=== PATIENT | male | born 1965 | race Caucasian/White ===

== ENCOUNTER 2021-06-23 18:38 | Observation (INO) ==
[2021-06-23] MEDS ORDERED: ENOXAPARIN 100 MG/ML SYRINGE SUBCUT STA (19:25)
[2021-06-23] MEDS ORDERED: ONDANSETRON 4 MG/2 ML VIAL IV STA (19:25)
[2021-06-23 21:13] LABS: Basophils # 0.1 10*3/uL (0.0-0.2); Basophils % 0.6 % (0.0-0.8); Eosinophils # 0.4 10*3/uL (0.0-0.87); Eosinophils % 4.4 % (0.00-10.9); Hematocrit 41.7 VOL% (42.0-52.0); Hemoglobin 15.1 GM/DL (14.0-18.0); Immature Granulocytes % 0.4 %; Immature Granulocytes Absolute 0.04 #; Lymphocytes # 2.5 10*3/uL (1.4-4.0); Mean Corpuscular HGB Conc 36.2 GM/DL (32-36); Mean Corpuscular Volume 84.6 FL (87-102); Mean Platelet Volume 10.1 FL (9.6-12.0); Monocytes # 0.6 10*3/uL (0.11-0.8); Monocytes % 5.9 % (1.7-12.7); Neutrophils % 62.7 % (38.7-73.9); Platelet Count 188 T/CUMM (130-400); Red Blood Count 4.93 MC/CUMM (3.8-5.5); Red Cell Distribution Width 13.1 % (9.3-17.3); White Blood Count 9.6 T/CUMM (4-12)
[2021-06-23 21:20] LABS: Albumin 3.6 G/DL (3.4-5.0); Bilirubin,Total 1.3 MG/DL (0.20-1.00); Osmolality,Calculated 281.8 MOS/KG (273-304); Potassium 3.5 MMOL/L (3.5-5.1); Total Protein 6.9 G/DL (6.4-8.2)
[2021-06-23] MEDS ORDERED: GLUCAGON 1 MG VIAL IM PRN (22:57)
[2021-06-23] MEDS ORDERED: ONDANSETRON 4 MG/2 ML VIAL IV PRN (22:57)
[2021-06-23] MEDS ORDERED: DEXTROSE 10% 250 ML BAG IV PRN (23:26)
[2021-06-24] MEDS: SODIUM CHLORIDE 0.9% 1,000 ML IV SCH ×2 (00:30→13:54)
[2021-06-24 05:11] LABS: Basophils # 0.1 10*3/uL (0.0-0.2); Basophils % 0.8 % (0.0-0.8); Eosinophils # 0.4 10*3/uL (0.0-0.87); Eosinophils % 5.4 % (0.00-10.9); Hemoglobin 14.5 GM/DL (14.0-18.0); Immature Granulocytes % 0.3 %; Immature Granulocytes Absolute 0.02 #; Lymphocytes # 2.3 10*3/uL (1.4-4.0); Lymphocytes % 29.8 % (21.2-54.2); Mean Corpuscular HGB Conc 36.3 GM/DL (32-36); Mean Corpuscular Volume 84.9 FL (87-102); Mean Platelet Volume 9.7 FL (9.6-12.0); Monocytes # 0.6 10*3/uL (0.11-0.8); Monocytes % 7.7 % (1.7-12.7); Platelet Count 146 T/CUMM (130-400); Red Blood Count 4.71 MC/CUMM (3.8-5.5); Red Cell Distribution Width 12.8 % (9.3-17.3); White Blood Count 7.7 T/CUMM (4-12)
[2021-06-24 05:20] LABS: PT Patient Result 10.9 SECS (10.5-12.0); Partial Thromboplastin Time 32.7 SECS (23.8-32.1)
[2021-06-24 05:32] LABS: Calcium 8.8 MG/DL (8.5-10.1); Osmolality,Calculated 279.8 MOS/KG (273-304); Potassium 3.6 MMOL/L (3.5-5.1)
[2021-06-24] MEDS: ACETAMINOPHEN 325 MG TABLET PO PRN ×2 (08:17→15:42)
[2021-06-24] MEDS ORDERED: ENOXAPARIN 150 MG/ML SYRINGE SUBCUT SCH (09:00)
[2021-06-24] MEDS: DOCUSATE SODIUM 100 MG CAPSULE PO SCH ×3 (10:17→20:35)
[2021-06-24] MEDS: INSULIN REGULAR 100 UNIT/ML SUBCUT SCH ×4 (10:17→21:47)
[2021-06-24] MEDS: PANTOPRAZOLE 40 MG TABLET PO SCH (10:17)
[2021-06-24] MEDS ORDERED: guaiFENesin/DM ER 600-30 MG TABLET PO PRN (13:58)
[2021-06-24] MEDS ORDERED: FEXOFENADINE 60 MG TABLET PO PRN (14:00)
[2021-06-24] MEDS: APIXABAN 5 MG TABLET PO SCH (20:35)
[2021-06-25 07:28] VITALS: BP 149/81
[2021-06-25] MEDS: INSULIN REGULAR 100 UNIT/ML SUBCUT SCH (08:51)
[2021-06-25] MEDS: DOCUSATE SODIUM 100 MG CAPSULE PO SCH (08:52)
[2021-06-25] MEDS: APIXABAN 5 MG TABLET PO SCH (08:52)
[2021-06-25] MEDS: PANTOPRAZOLE 40 MG TABLET PO SCH (08:52)
== END 2021-06-25 10:35 | disposition home or self-care (01) ==
LOC: N.ED 18:38 → N.EDINP 18:38 → N.TELES 06-24 01:17
PROVIDERS: ADMIT Internal Medicine; ATTEND Internal Medicine